=== PATIENT | male | born 1995 | race Two or more races ===

== ENCOUNTER 2019-03-16 08:35 | Emergency (ER) | payer OTHER ==
[2019-03-16 08:44] VITALS: BMI 41.8
[2019-03-16] MEDS ORDERED: IBUPROFEN 400 MG TABLET (FP) PO ONE ×2 (08:49→08:52)
--- NOTE | 2019-03-16 08:59 | PDOC ---
History of Present Illness - General History Source: Patient Exam Limitations: Clinical Condition - History of Present Illness Initial Comments: 03/16/19 08:55 Patient with no significant past medical history present with complaint of anterior right knee pain status post slip and fall on ice yesterday hitting anterior right knee on the ground. Patient reported increased pain to right knee with ambulation. Patient did not take anything for pain. Denies numbness or tingling sensation or weakness to lower extremity. Patient denies hitting head or loss of consciousness. Denies any other symptoms Occurred: reports: yesterday Pain Location: reports: lower extremity (right anterior knee) Method of Injury: Yes: fall Loss of Consciousness: no loss of consciousness Associated Symptoms (Fall): denies symptoms <Bolivar Ascencio - Last Filed: 03/16/19 09:51> <Sagar Best - Last Filed: 03/16/19 16:25> - General Chief Complaint: Pain, Acute Stated Complaint: RT KNEE PAIN Time Seen by Provider: 03/16/19 08:46 Past History - Past Medical History COPD: No Other medical history: DENIES - Immunization History Immunization Up to Date: No - Psycho Social/Smoking Cessation Hx Smoking Status: No Smoking History: Never smoked Have you smoked in the past 12 months: Yes Number of Cigarettes Smoked Daily: 3 'Breaking Loose' booklet given: 01/05/16 Hx Alcohol Use: No Drug/Substance Use Hx: No Substance Use Type: None <Bolivar Ascencio - Last Filed: 03/16/19 09:51> <Sagar Best - Last Filed: 03/16/19 16:25> - Past Medical History Allergies/Adverse Reactions: Allergies Allergy/AdvReac Type Severity Reaction Status Date / Time No Known Allergies Allergy Verified 03/16/19 08:40 Home Medications: Ambulatory Orders Naproxen 500 mg PO BID PRN #20 tablet 03/16/19 Review of Systems - Review of Systems Able to Perform ROS?: Yes Is the patient limited Faroese proficient: No Constitutional: No: Malaise, Weakness HEENTM: No: Symptoms Reported Respiratory: No: Symptoms reported Cardiac (ROS): No: Symptoms Reported Musculoskeletal: Yes: Symptoms Reported, See HPI, Joint Swelling (anterior right knee), Muscle Pain (anterior right knee). No: Muscle Weakness, Joint Stiffness Integumentary: Yes: Symptoms Reported, See HPI, Bruising (anterior right knee patella ) Neurological: No: Symptoms reported, Numbness, Paresthesia, Tingling, Dizziness All Other Systems: Reviewed and Negative <Bolivar Ascencio - Last Filed: 03/16/19 09:51> *Physical Exam - Vital Signs Last Vital Signs Temp Pulse Resp BP Pulse Ox 97.5 F L 84 18 135/75 97 03/16/19 08:40 03/16/19 08:40 03/16/19 08:40 03/16/19 08:40 03/16/19 08:40 - Physical Exam 03/16/19 08:57 GENERAL: Well developed, well nourished. Awake and alert in mild acute distress. PULMONARY: No evidence of respiratory distress. MUSCULOSKELETAL :mild localized swelling to anterior patella with moderate tenderness to anterior patella. Small area of superficial abrasions to right anterior patella. No joint effusion. No tenderness to medial lateral collateral ligament. Negative anterior posterior drawer test of right knee. SKIN: Warm and dry. Normal capillary refill. Small localized superficial abrasions to anterior right knee. No bleeding from site. NEUROLOGICAL: Alert, awake, appropriate. No motor deficits in the lower extremities. Gait is normal without ataxia. PSYCHIATRIC: Cooperative. Good eye contact. Appropriate mood and affect. General Appearance: Yes: Nourished, Appropriately Dressed, Mild Distress <Bolivar Ascencio - Last Filed: 03/16/19 09:51> - Vital Signs Last Vital Signs Temp Pulse Resp BP Pulse Ox 97.8 F 78 18 130/74 99 03/16/19 09:53 03/16/19 09:53 03/16/19 09:53 03/16/19 09:53 03/16/19 09:53 <Sagar Best - Last Filed: 03/16/19 16:25> ED Treatment Course - RADIOLOGY Radiology Studies Ordered: Category Date Time Status KNEE 3 POS-RIGHT [RAD] Stat Radiology 03/16/19 08:46 Ordered <Bolivar Ascencio - Last Filed: 03/16/19 09:51> - Medications Given in the ED: ED Medications Discontinued Medications Generic Name Dose Route Start Last Admin Trade Name Freq PRN Reason Stop Dose Admin Ibuprofen 800 mg 03/16/19 08:49 03/16/19 08:57 Motrin - PO 03/16/19 08:50 800 mg ONCE ONE Administration <Sagar Best - Last Filed: 03/16/19 16:25> Medical Decision Making - Medical Decision Making 03/16/19 08:56 Patient with no significant past medical history present with complaint of anterior right knee pain status post slip and fall on ice yesterday hitting anterior right knee on the ground. Patient reported increased pain to right knee with ambulation. Patient did not take anything for pain. Denies numbness or tingling sensation or weakness to lower extremity. Patient denies hitting head or loss of consciousness. Denies any other symptoms Exam significant for mild localized swelling to anterior patella with moderate tenderness to anterior patella. Small area of superficial abrasions to right anterior patella. No joint effusion. No tenderness to medial lateral collateral ligament. Negative anterior posterior drawer test of right knee. Patient symptoms likely knee contusion versus less likely fracture. Motrin 800 mg p.o. ordered for pain. X-ray right knee ordered to rule out fracture 03/16/19 09:51 X-ray of right knee shows no acute fracture or dislocation. Symptoms likely knee contusion. Patient stable for discharge and naproxen as needed for pain with advised to do hot compress as needed for swelling with orthopedics follow- up <Bolivar Ascencio - Last Filed: 03/16/19 09:51> - Medical Decision Making 03/16/19 16:25 I reviewed the case of the mid-level practitioner and was available for consultation while in the emergency department <Sagar Best - Last Filed: 03/16/19 16:25> Discharge - Discharge Information Problems reviewed: Yes - Admission No <Bolivar Ascencio - Last Filed: 03/16/19 09:51> <Sagar Best - Last Filed: 03/16/19 16:25> - Discharge Information Clinical Impression/Diagnosis: Contusion of right knee, initial encounter, Abrasion, right knee, initial encounter Condition: Stable Disposition: HOME - Additional Discharge Information Prescriptions: Naproxen 500 mg PO BID PRN #20 tablet PRN Reason: knee pain - Follow up/Referral Referrals: Chito Scott DO [Staff Physician] - - Patient Discharge Instructions Patient Printed Discharge Instructions: DI for Knee Sprain Additional Instructions: X-ray of the knee shows no acute fracture or dislocation. Pain likely from contusion. Take prescribed medication as prescribed for pain. Apply warm compress to the knee 2-3 times a day as needed for pain. Rest today and tomorrow and no strenuous activity for the next 2 days. Follow-up referred to orthopedics if symptoms persist for more than 4 days
[2019-03-16 09:54] VITALS: BP 130/74; PULSE 78; TEMP 97.8
== END 2019-03-16 09:54 | disposition home or self-care (01) ==
LOC: JER 08:35
DX: S80.01XA Contusion of right knee, initial encounter (principal); S80.211A Abrasion, right knee, initial encounter; W00.2XXA Other fall from one level to another due to ice and snow, initial encounter; Y93.89 Activity, other specified; Y92.89 Other specified places as the place of occurrence of the external cause; Y99.8 Other external cause status
CPT/HCPCS: 73562-TC-RT-FY; 99282-25

== ENCOUNTER 2019-03-29 19:45 | Emergency (ER) | payer OTHER ==
[2019-03-29 19:50] VITALS: BP 163/91; PULSE 89; TEMP 98.5; BMI 41.8
--- NOTE | 2019-03-29 20:04 | PDOC ---
History of Present Illness - General Chief Complaint: Cold Symptoms Stated Complaint: CONGESTION X 1 DAY Time Seen by Provider: 03/29/19 19:54 History Source: Patient - History of Present Illness Timing/Duration: reports: yesterday Past History - Past Medical History Allergies/Adverse Reactions: Allergies Allergy/AdvReac Type Severity Reaction Status Date / Time No Known Allergies Allergy Verified 03/16/19 08:40 Home Medications: Ambulatory Orders Naproxen 500 mg PO BID PRN #20 tablet 03/16/19 COPD: No - Immunization History Immunization Up to Date: No - Psycho Social/Smoking Cessation Hx Smoking Status: No Smoking History: Never smoked Have you smoked in the past 12 months: Yes Number of Cigarettes Smoked Daily: 3 'Breaking Loose' booklet given: 01/05/16 Hx Alcohol Use: No Drug/Substance Use Hx: Yes (marijuana) Substance Use Type: None Review of Systems - Review of Systems Constitutional: No: Chills, Fever HEENTM: Yes: Nose Congestion. No: Ear Pain, Throat Pain Respiratory: Yes: Cough. No: Shortness of Breath *Physical Exam - Vital Signs Last Vital Signs Temp Pulse Resp BP Pulse Ox 98.5 F 89 19 163/91 98 03/29/19 19:47 03/29/19 19:47 03/29/19 19:47 03/29/19 19:47 03/29/19 19:47 - Physical Exam General Appearance: Yes: Appropriately Dressed. No: Apparent Distress HEENT: positive: Normal ENT Inspection, Normal Voice, TMs Normal, Pharynx Normal. negative: Scleral Icterus (R), Scleral Icterus (L) Neck: positive: Supple. negative: Lymphadenopathy (R), Lymphadenopathy (L) Respiratory/Chest: positive: Lungs Clear, Normal Breath Sounds. negative: Respiratory Distress Cardiovascular: positive: Regular Rate, S1, S2 Integumentary: positive: Dry, Warm Neurologic: positive: Fully Oriented, Alert, Normal Mood/Affect Medical Decision Making - Medical Decision Making 03/29/19 20:03 23-year-old male no significant history here with congestion and cough since yesterday. No ear pain sore throat body aches fever or chills. Not taking anything for symptoms see exam M/l viral URI Exam wnl Dc w/ supportive tx Discharge - Discharge Information Problems reviewed: Yes Clinical Impression/Diagnosis: URI (upper respiratory infection) Qualifiers: URI type: unspecified viral URI Qualified Code(s): J06.9 - Acute upper respiratory infection, unspecified Condition: Good Disposition: HOME - Follow up/Referral - Patient Discharge Instructions Patient Printed Discharge Instructions: DI for Viral Upper Respiratory Infection -- Adult - Post Discharge Activity
== END 2019-03-29 20:18 | disposition home or self-care (01) ==
LOC: JERFT 19:45
DX: J06.9 Acute upper respiratory infection, unspecified (principal); B97.89 Other viral agents as the cause of diseases classified elsewhere
CPT/HCPCS: 99281-25